=== PATIENT | female | born 1945 | race Caucasian/White ===

== ENCOUNTER 2016-12-11 11:04 | Emergency (ER) | payer MEDICARE, BC ==
[~2016-12-11] VITALS: Ht 162.6 cm; Wt 56.7 kg
[2016-12-11] MEDS ORDERED: ASPIR 8181 MG PO (11:32)
[2016-12-11] MEDS ORDERED: VITAMIN D2000 UNIT PO (11:33)
[2016-12-11] MEDS ORDERED: AUGMENTIN 875-1 EACH PO (12:04)
== END 2016-12-11 12:40 | disposition home or self-care (01) ==
LOC: ED 11:04
DX: S80.872A Other superficial bite, left lower leg, initial encounter (principal); Z90.49 Acquired absence of other specified parts of digestive tract; Z90.710 Acquired absence of both cervix and uterus; Z88.2 Allergy status to sulfonamides; Z79.82 Long term (current) use of aspirin; Z79.899 Other long term (current) drug therapy; W54.0XXA Bitten by dog, initial encounter
CPT/HCPCS: 90471; 90715; 99283